=== PATIENT | female | born 1935 | race Two or more races ===

== ENCOUNTER 2018-05-13 09:36 | Outpatient (CLI) | payer OTHER ==
[~2018-05-13 09:36] MED LIST: CYMBALTA60 MG PO; METFORMIN HCL500 MG PO; SYNTHROID
== END 2018-05-13 09:41 | disposition home or self-care (01) ==
LOC: MAMO-SONO 09:36
DX: Z12.31 Encounter for screening mammogram for malignant neoplasm of breast (principal); Z87.898 Personal history of other specified conditions; N64.89 Other specified disorders of breast

== ENCOUNTER 2020-12-12 13:05 | Outpatient (CLI) | payer OTHER | END 2020-12-12 13:18 | disposition home or self-care (01) | LOC: RAD 13:05 | PROVIDERS: ATTEND Specialist | DX: R05 Cough (principal) ==